=== PATIENT | female | born 1955 | race Caucasian/White ===

== ENCOUNTER 2017-01-26 15:46 | Observation (INO) | payer OTHER ==
[~2017-01-26] VITALS: Ht 165.1 cm; Wt 58.0 kg
[2017-01-26 16:35] LABS: ADD MIUA? YES; BILIRUBIN NEGATIVE; BLOOD NEGATIVE; COLOR YELLOW ((YELLOW)); GLUCOSE (STRIP) NEGATIVE; KETONES NEGATIVE; LEUKOCYTES TRACE; NITRITE NEGATIVE; PROTEIN (STRIP) NEGATIVE; SPECIFIC GRAVITY 1.013 (1.000-1.030); UROBILINOGEN 0.2 MG/DL (0.2-1.0)
[2017-01-26 16:55] LABS: BACTERIA 2+ /HPF; CASTS NONE SEEN /LPF; CRYSTALS NONE SEEN; EPITHELIAL CELLS 2+ /HPF; MUCUS NONE SEEN /LPF; RED BLOOD CELLS 0-5 /HPF (0-5); UCUL ADDED? YES
[2017-01-26 17:12] LABS: EOSINOPHIL (%) 3.8 % (0-5); EOSINOPHIL COUNT 0.3 K/uL (0-0.3); HEMATOCRIT 34.5 % (36.0-46.0); IMMATURE GRANULOCYTE (%) 0.3 % (0.0-0.7); INSTRUMENT ABS NEUTROPHIL CT 3.5 K/uL; LYMPHOCYTE COUNT 2.8 K/uL (1.0-2.8); MCH 29.8 PG (29.0-34.0); MCHC 32.2 G/DL (30.0-36.0); MCV 92.5 FL (83-99); MONOCYTE (%) 11.7 % (3-12); MONOCYTE COUNT 0.9 K/uL (0-0.8); NEUTROPHIL (%) 46.8 % (45-76); NEUTROPHIL COUNT 3.5 K/uL (1.8-6.4); PLATELET COUNT 242 K/uL (156-360); RBC DIS.WIDTH-CV 13.9 % (11.8-14.6); RBC DIS.WIDTH-SD 47.6 % (39-53); RED BLOOD COUNT 3.73 M/uL (3.80-5.20); WHITE BLOOD COUNT 7.5 K/uL (4.1-10.2)
[2017-01-26 17:21] LABS: CHLORIDE 105 mEq/L (99-109); POTASSIUM 3.7 mEq/L (3.7-5.4); SODIUM 136 mEq/L (136-147)
[2017-01-26 17:23] LABS: GLUCOSE 102 mg/dL (70-99)
[2017-01-26 17:25] LABS: ANION GAP 8 MEQ/L (2-14); TOTAL BILIRUBIN 0.2 mg/dL (0.0-1.0)
[2017-01-26 17:27] LABS: ALKALINE PHOSPHATASE 121 IU/L (3-129); GFR ESTIMATE (CALCULATED) 37 mL/min/
[2017-01-26 17:28] LABS: UREA NITROGEN (BUN) 34 mg/dL (9-23)
[2017-01-26 17:29] LABS: DIRECT BILIRUBIN 0.1 mg/dL (0.0-0.3)
[2017-01-26 17:30] LABS: LIPASE 35 U/L (1.0-51.0)
[2017-01-26 17:33] LABS: TROP-I INTERPRETATION NEGATIVE; TROPONIN-I < 0.01 ng/mL (0.0-0.30)
[2017-01-26] MEDS ORDERED: ESTRACE42.5 GM VG (20:21)
[2017-01-26] MEDS ORDERED: TRAMADOL HCL50 MG PO (20:21)
[2017-01-26] MEDS ORDERED: LISINOPRIL30 MG PO (20:22)
[2017-01-26] MEDS ORDERED: MELOXICAM15 MG PO (20:22)
[2017-01-26] MEDS ORDERED: CYCLOBENZAPRINE5 MG PO (20:23)
[2017-01-26] MEDS ORDERED: DULOXETINE HCL20 MG PO (20:24)
[2017-01-26] MEDS ORDERED: ROSUVASTATIN CAL5 MG PO (20:24)
[2017-01-26] MEDS ORDERED: NITROLINGUAL S4.9 GM MM (20:25)
[2017-01-26] MEDS ORDERED: VIBERZI75 MG PO (20:25)
[2017-01-26] MEDS ORDERED: LO-DOSE ASPIRIN81 M2 PO (20:26)
[2017-01-26] MEDS ORDERED: IMODIUM A-D2 M2 PO (20:28)
[2017-01-26] MEDS ORDERED: ZINC50 M1 PO (20:29)
[2017-01-26] MEDS ORDERED: CENTRUM SILVER1 EAC4 PO (20:29)
[2017-01-26 21:50] VITALS: BP 107/68; BP 114/66
[2017-01-26 22:01] VITALS: BP 115/62
[2017-01-26 23:57] LABS: TROP-I INTERPRETATION NEGATIVE; TROPONIN-I < 0.01 ng/mL (0.0-0.30)
[2017-01-27] VITALS: BP 114/72; BP 99/55
[2017-01-27 03:24] LABS: IRON 15 MCG/DL (35-150)
[2017-01-27 03:53] VITALS: BP 105/59
[2017-01-27 05:33] LABS: HEMATOCRIT 30.1 % (36.0-46.0); MCH 30.4 PG (29.0-34.0); MCHC 32.6 G/DL (30.0-36.0); MCV 93.5 FL (83-99); MEAN PLAT.VOLUME 10.3 uM^3 (9.5-12.4); PLATELET COUNT 216 K/uL (156-360); RBC DIS.WIDTH-CV 13.9 % (11.8-14.6); RBC DIS.WIDTH-SD 47.9 % (39-53); RED BLOOD COUNT 3.22 M/uL (3.80-5.20); WHITE BLOOD COUNT 8.1 K/uL (4.1-10.2)
[2017-01-27 05:37] LABS: TROP-I INTERPRETATION NEGATIVE; TROPONIN-I < 0.01 ng/mL (0.0-0.30)
[2017-01-27 05:51] LABS: ALKALINE PHOSPHATASE 90 IU/L (3-129); ANION GAP 3 MEQ/L (2-14); CHLORIDE 113 MEQ/L (99-109); GFR ESTIMATE (CALCULATED) 53 mL/min/; GLUCOSE 98 mg/dL (70-99); POTASSIUM 4.3 MEQ/L (3.7-5.4); SAMPLE HEMOLYSIS CHECK 0; SAMPLE ICTERIC CHECK 0; SAMPLE LIPEMIA CHECK 0; SODIUM 138 MEQ/L (136-147); TOTAL BILIRUBIN 0.2 MG/DL (0.0-1.0); UREA NITROGEN (BUN) 29 mg/dL (9-23)
[2017-01-27 07:57] LABS: FERRITIN 188 NG/ML (10-291)
[2017-01-27] MEDS ORDERED: CEFTIN500 MG PO (09:10)
[2017-01-27] MEDS ORDERED: FERROUS SULFAT324 M1 PO (09:12)
[2017-01-27 09:50] VITALS: BP 130/69
== END 2017-01-27 11:42 | disposition home or self-care (01) ==
LOC: EME 15:46 → RME 15:46 → EDOF 20:45 → 5WEST 20:45 → ENRESERV 20:47 → 5WEST 21:51
PROVIDERS: Internal Medicine; Physician Assistant
DX: R19.7 Diarrhea, unspecified (principal); R42 Dizziness and giddiness; N39.0 Urinary tract infection, site not specified; N17.9 Acute kidney failure, unspecified; R11.2 Nausea with vomiting, unspecified; R51 Headache; I95.1 Orthostatic hypotension; D64.9 Anemia, unspecified; K58.9 Irritable bowel syndrome, unspecified; I25.10 Atherosclerotic heart disease of native coronary artery without angina pectoris; Z95.5 Presence of coronary angioplasty implant and graft; F17.210 Nicotine dependence, cigarettes, uncomplicated; G89.29 Other chronic pain; M54.9 Dorsalgia, unspecified; I10 Essential (primary) hypertension; F32.9 Major depressive disorder, single episode, unspecified; Z79.82 Long term (current) use of aspirin; Z82.49 Family history of ischemic heart disease and other diseases of the circulatory system; Z88.1 Allergy status to other antibiotic agents
CPT/HCPCS: 70450; 71010; 74176; 80048; 80053; 80076; 81003; 82272; 82728; 83540; 83605; 83630; 83690; 84466; 84484; 85025; 85027; 87086; 87177; 87493; 87506; 93005; 99281; 99285; G0378; J0696; J1644; J2405; J3010; J7030; J7050

== ENCOUNTER 2017-03-27 12:29 | Day surgery (SDC) | payer OTHER ==
[~2017-03-27] VITALS: Ht 159.4 cm; Wt 59.0 kg
[~2017-03-27 12:29] MED LIST: ALENDRONATE SOD70 MG PO; ASPIR 8181 M1 PO; CEFTIN500 MG PO; CENTRUM SILVER1 EAC4 PO; CRESTOR20 MG PO; CYCLOBENZAPRINE5 MG PO; DICYCLOMINE HCL10 MG PO; DULOXETINE HCL20 MG PO; ESTRACE42.5 GM VG; FERROUS SULFAT324 M1 PO; IMODIUM A-D2 M2 PO; LISINOPRIL30 MG PO; LO-DOSE ASPIRIN81 M2 PO; MELOXICAM15 MG PO; NITROLINGUAL S4.9 GM MM; ROSUVASTATIN CAL5 MG PO; TRAMADOL HCL50 MG PO; VIBERZI75 MG PO; VITAMIN B-12250 MCG PO; ZINC50 M1 PO
== END 2017-03-27 14:20 | disposition home or self-care (01) ==
LOC: PAIN 12:29 → SDC 13:00 → PAIN 14:20
DX: M47.816 Spondylosis without myelopathy or radiculopathy, lumbar region (principal); M54.5 Low back pain; G89.29 Other chronic pain; M51.36 Other intervertebral disc degeneration, lumbar region; S32.020A Wedge compression fracture of second lumbar vertebra, initial encounter for closed fracture; M79.1 Myalgia; I10 Essential (primary) hypertension; E78.5 Hyperlipidemia, unspecified; I25.10 Atherosclerotic heart disease of native coronary artery without angina pectoris; M53.3 Sacrococcygeal disorders, not elsewhere classified; D64.9 Anemia, unspecified; F41.9 Anxiety disorder, unspecified; Z87.891 Personal history of nicotine dependence; Z79.891 Long term (current) use of opiate analgesic
CPT/HCPCS: J1030; J2250; J3010; S0020

== ENCOUNTER 2017-04-03 08:29 | Day surgery (SDC) | payer OTHER ==
[~2017-04-03] VITALS: Ht 159.4 cm; Wt 59.0 kg
== END 2017-04-03 10:02 | disposition home or self-care (01) ==
LOC: PAIN 08:29 → SDC 09:00 → PAIN 10:02
DX: M47.816 Spondylosis without myelopathy or radiculopathy, lumbar region (principal); M51.36 Other intervertebral disc degeneration, lumbar region; M79.1 Myalgia; Z87.891 Personal history of nicotine dependence; G89.29 Other chronic pain; M48.56XA Collapsed vertebra, not elsewhere classified, lumbar region, initial encounter for fracture; F41.9 Anxiety disorder, unspecified; I25.10 Atherosclerotic heart disease of native coronary artery without angina pectoris; E78.5 Hyperlipidemia, unspecified; I10 Essential (primary) hypertension; K58.9 Irritable bowel syndrome, unspecified; M85.80 Other specified disorders of bone density and structure, unspecified site; Z79.82 Long term (current) use of aspirin; Z95.5 Presence of coronary angioplasty implant and graft
CPT/HCPCS: J1030; J2250; J3010; S0020

== ENCOUNTER 2017-04-21 12:55 | Day surgery (SDC) | payer OTHER ==
[~2017-04-21] VITALS: Ht 158.8 cm; Wt 59.0 kg
[~2017-04-21 12:55] MED LIST changes: +CYMBALTA20 MG PO; +FERROUS GLUCON324 MG PO; +FLEXERIL5 MG PO; +NITROGLYCERIN4.1 GM MM; +ULTRAM50 MG PO; +ZESTRIL30 MG PO
== END 2017-04-21 14:41 | disposition home or self-care (01) ==
LOC: PAIN 12:55 → SDC 13:30 → PAIN 13:30
DX: M47.816 Spondylosis without myelopathy or radiculopathy, lumbar region (principal); M54.5 Low back pain; G89.29 Other chronic pain; M51.36 Other intervertebral disc degeneration, lumbar region; M48.56XA Collapsed vertebra, not elsewhere classified, lumbar region, initial encounter for fracture; I25.10 Atherosclerotic heart disease of native coronary artery without angina pectoris; M25.552 Pain in left hip; M85.89 Other specified disorders of bone density and structure, multiple sites; M25.551 Pain in right hip; I10 Essential (primary) hypertension; M53.3 Sacrococcygeal disorders, not elsewhere classified; F41.9 Anxiety disorder, unspecified; Z79.82 Long term (current) use of aspirin; Z79.891 Long term (current) use of opiate analgesic; Z95.5 Presence of coronary angioplasty implant and graft
CPT/HCPCS: J1030; J3010; S0020

== ENCOUNTER 2017-04-28 13:56 | Day surgery (SDC) | payer OTHER ==
[~2017-04-28] VITALS: Ht 160 cm; Wt 59.0 kg
[~2017-04-28 13:56] MED LIST changes: +BENTYL10 MG PO; -DICYCLOMINE HCL10 MG PO
[2017-04-30] MEDS ORDERED: NORCO 5/3251 TABLET PO (13:12)
== END 2017-04-28 15:30 | disposition home or self-care (01) ==
LOC: PAIN 13:56 → SDC 14:30 → PAIN 15:30
DX: M47.816 Spondylosis without myelopathy or radiculopathy, lumbar region (principal); M54.5 Low back pain; G89.29 Other chronic pain; S32.020A Wedge compression fracture of second lumbar vertebra, initial encounter for closed fracture; M51.36 Other intervertebral disc degeneration, lumbar region; I25.10 Atherosclerotic heart disease of native coronary artery without angina pectoris; K43.9 Ventral hernia without obstruction or gangrene; I10 Essential (primary) hypertension; I73.9 Peripheral vascular disease, unspecified; E78.5 Hyperlipidemia, unspecified; M81.0 Age-related osteoporosis without current pathological fracture; M79.1 Myalgia; F41.9 Anxiety disorder, unspecified; Z95.5 Presence of coronary angioplasty implant and graft; Z79.82 Long term (current) use of aspirin; Z87.891 Personal history of nicotine dependence; Z86.711 Personal history of pulmonary embolism
CPT/HCPCS: J1030; J2250; J3010; S0020

== ENCOUNTER 2017-05-19 17:53 | Emergency (ER) | payer OTHER ==
[~2017-05-19] VITALS: Ht 160 cm; Wt 63.2 kg
[~2017-05-19 17:53] MED LIST changes: +NORCO 5/3251 TABLET PO
[2017-05-19 18:23] LABS: HEMATOCRIT 36.7 % (36.0-46.0); MCH 30.4 PG (29.0-34.0); MCV 92.2 FL (83-99); MEAN PLAT.VOLUME 9.5 uM^3 (9.5-12.4); PLATELET COUNT 311 K/uL (156-360); RBC DIS.WIDTH-CV 14.2 % (11.8-14.6); RBC DIS.WIDTH-SD 47.9 % (39-53); RED BLOOD COUNT 3.98 M/uL (3.80-5.20); WHITE BLOOD COUNT 5.7 K/uL (4.1-10.2)
[2017-05-19 18:46] LABS: CHLORIDE 108 mEq/L (99-109); POTASSIUM 4.2 mEq/L (3.7-5.4); SODIUM 135 mEq/L (136-147)
[2017-05-19 18:48] LABS: GLUCOSE 153 mg/dL (70-99)
[2017-05-19 18:49] LABS: ANION GAP 9 MEQ/L (2-14)
[2017-05-19 18:52] LABS: GFR ESTIMATE (CALCULATED) > 59 mL/min/
[2017-05-19 18:53] LABS: UREA NITROGEN (BUN) 26 mg/dL (9-23)
[2017-05-19 20:31] LABS: INTER. NORMALIZED RATIO 1.1; PROTHROMBIN TIME 12.4 SEC (10.2-12.9)
[2017-05-19 22:34] VITALS: BP 109/63
== END 2017-05-19 22:47 | disposition home or self-care (01) ==
LOC: EME 17:53 → RME 17:53
PROVIDERS: Physician Assistant Medical
DX: J06.9 Acute upper respiratory infection, unspecified (principal); R19.7 Diarrhea, unspecified; R79.1 Abnormal coagulation profile; R42 Dizziness and giddiness; R51 Headache; R11.2 Nausea with vomiting, unspecified; R10.9 Unspecified abdominal pain; Z86.711 Personal history of pulmonary embolism; I10 Essential (primary) hypertension; Z95.5 Presence of coronary angioplasty implant and graft; Z79.82 Long term (current) use of aspirin; Z87.891 Personal history of nicotine dependence
CPT/HCPCS: 71275; 80048 91; 81003; 85027; 85610; 99281; 99285; J7030

== ENCOUNTER 2018-02-02 08:29 | Day surgery (SDC) | payer OTHER ==
[~2018-02-02] VITALS: Ht 160 cm; Wt 63.2 kg
[~2018-02-02 08:29] MED LIST changes: -BENTYL10 MG PO; +BENTYL20 MG PO; +FOSAMAX70 MG PO; +PRILOSEC20 MG PO; +TRENTAL400 MG PO; +VIBERZI100 MG PO; +ZOFRAN4 MG PO
== END 2018-02-02 10:30 | disposition home or self-care (01) ==
LOC: PAIN 08:29 → SDC 09:00 → PAIN 10:30
DX: M53.3 Sacrococcygeal disorders, not elsewhere classified (principal); M46.1 Sacroiliitis, not elsewhere classified; M47.816 Spondylosis without myelopathy or radiculopathy, lumbar region; I10 Essential (primary) hypertension; K21.9 Gastro-esophageal reflux disease without esophagitis; M51.36 Other intervertebral disc degeneration, lumbar region; I70.212 Atherosclerosis of native arteries of extremities with intermittent claudication, left leg; I25.10 Atherosclerotic heart disease of native coronary artery without angina pectoris; E78.5 Hyperlipidemia, unspecified; Z87.891 Personal history of nicotine dependence; Z95.5 Presence of coronary angioplasty implant and graft; Z79.82 Long term (current) use of aspirin; Z79.891 Long term (current) use of opiate analgesic; Z88.1 Allergy status to other antibiotic agents; Z88.5 Allergy status to narcotic agent
CPT/HCPCS: J1030; J2250; J3010; S0020